=== PATIENT | male | born 1995 | race Two or more races ===

== ENCOUNTER 2022-08-08 21:28 | Emergency (ER) | payer SELFPAY ==
[~2022-08-08] VITALS: Ht 182.9 cm; Wt 83.4 kg
[2022-08-08 21:29] VITALS: BP 145/83
[2022-08-08 23:51] LABS: GC DNA AMPLIFICATION NEGATIVE (NEGATIVE)
== END 2022-08-09 01:20 | disposition left against medical advice (07) ==
LOC: M ED 21:28
DX: Z53.21 Procedure and treatment not carried out due to patient leaving prior to being seen by health care provider (principal)

== ENCOUNTER 2022-08-13 11:30 | Emergency (ER) | payer OTHER, SELFPAY ==
[~2022-08-13] VITALS: Ht 182.9 cm; Wt 84.5 kg
[2022-08-13 13:43] LABS: GC DNA AMPLIFICATION NEGATIVE (NEGATIVE)
[2022-08-13 14:16] VITALS: BP 128/68
== END 2022-08-13 14:21 | disposition home or self-care (01) ==
LOC: M ED 11:30
DX: R30.0 Dysuria (principal); Z11.3 Encounter for screening for infections with a predominantly sexual mode of transmission; F17.290 Nicotine dependence, other tobacco product, uncomplicated